=== PATIENT | male | born 1965 | race Caucasian/White ===

== ENCOUNTER 2021-01-03 10:22 | Observation (INO) | payer OTHER ==
[~2021-01-03] VITALS: Ht 182.9 cm; Wt 113.4 kg
[~2021-01-03 10:22] MED LIST: LOPRESSOR 25 MG25 MG PO; LOVAZA1 GM PO; VOLTAREN EC 7575 MG PO
[2021-01-03 11:54] LABS: HEMOGLOBIN 14.9 gm/dl (14.0-17.5); RED BLOOD COUNT 5.04 M/UL (4.20-5.50); WHITE BLOOD COUNT 6.7 K/UL (4.5-11.0)
[2021-01-03 12:22] LABS: BUN/CREATININE RATIO 25 (0-10)
[2021-01-03] MEDS ORDERED: LEVEMIR100 UNIT/1 SC (14:21)
[2021-01-03] MEDS ORDERED: DIABETA 5 MG TAB5 MG PO (14:21)
[2021-01-03] MEDS ORDERED: ZYLOPRIM 100 M100 MG PO (14:22)
[2021-01-03] MEDS ORDERED: CRESTOR40 MG PO (14:22)
[2021-01-03] MEDS ORDERED: ZESTRIL20 MG PO (14:23)
[2021-01-03] MEDS ORDERED: BUSPIRONE HCL5 MG PO (14:23)
[2021-01-03] MEDS ORDERED: COLCHICINE0.6 MG PO (14:23)
[2021-01-03] MEDS ORDERED: FENOFIBRATE160 MG PO (14:24)
[2021-01-03] MEDS ORDERED: VOLTAREN ARTHRI20 GM TOP (14:24)
[2021-01-03] MEDS ORDERED: NIACIN ER500 MG PO (14:25)
[2021-01-03] MEDS ORDERED: ASPIRIN EC81 MG PO (14:25)
[2021-01-04 06:16] LABS: HEMOGLOBIN 15.4 gm/dl (14.0-17.5); RED BLOOD COUNT 5.16 M/UL (4.20-5.50)
[2021-01-04 06:21] LABS: WHITE BLOOD COUNT 8.9 K/UL (4.5-11.0)
[2021-01-04 06:36] LABS: BUN/CREATININE RATIO 26 (0-10)
[2021-01-04] MEDS ORDERED: LISINOPRIL40 MG PO ×2 (09:56→13:42)
== END 2021-01-04 14:41 | disposition home or self-care (01) ==
LOC: ER1 10:22 → CDU 12:53 → PROG CARE 12:53
PROVIDERS: Emergency Medicine; ADMIT Internal Medicine
DX: G45.9 Transient cerebral ischemic attack, unspecified (principal); I16.1 Hypertensive emergency; I10 Essential (primary) hypertension; E11.9 Type 2 diabetes mellitus without complications; M10.9 Gout, unspecified; E78.5 Hyperlipidemia, unspecified; H54.40 Blindness, one eye, unspecified eye; E66.9 Obesity, unspecified; Z68.33 Body mass index [BMI] 33.0-33.9, adult; Z20.822 Contact with and (suspected) exposure to COVID-19; Z79.4 Long term (current) use of insulin; Z88.5 Allergy status to narcotic agent
CPT/HCPCS: ECHO; 36415; 70450; 70551; 71045; 80048; 80053; 81001; 82550; 82553; 82962; 83036; 83735; 83874; 84484; 85025; 85610; 85730; 93005; 93306; 93880; 96372; 96374; 96375; 99285; G0378; J0360; J1650; U0002